=== PATIENT | female | born 1970 | race African-American/Black ===

== ENCOUNTER 2017-06-17 21:48 | Emergency (ER) | payer OTHER ==
[~2017-06-17] VITALS: Ht 162.6 cm; Wt 128.0 kg
[2017-06-17] MEDS ORDERED: ALBU1.25 NEB (22:06)
[2017-06-17] MEDS ORDERED: FLUTICASONE (22:06)
[2017-06-18] MEDS ORDERED: HYDROcodone/APAP 7.5-325MG/15ML UDC PO ONE
[2017-06-18] MEDS ORDERED: HYDROcodone/APAP 7.5-325MG/15ML UDC ONE (00:17)
[2017-06-18 00:56] VITALS: BP 140/80
== END 2017-06-18 01:00 | disposition home or self-care (01) ==
LOC: ED 23:10
DX: J39.8 Other specified diseases of upper respiratory tract (principal); I10 Essential (primary) hypertension
CPT/HCPCS: 36415; 71046; 86308; 87265; 99285

== ENCOUNTER 2017-06-27 17:26 | Emergency (ER) | payer OTHER ==
[~2017-06-27] VITALS: Ht 157.5 cm; Wt 127.9 kg
[~2017-06-27 17:26] MED LIST: ALBU1.25 NEB; FLUTICASONE
[2017-06-27 17:28] VITALS: BP 172/100
== END 2017-06-27 18:13 | disposition home or self-care (01) ==
LOC: ED 18:07
DX: B86 Scabies (principal); I10 Essential (primary) hypertension
CPT/HCPCS: 99283

== ENCOUNTER 2018-07-10 14:40 | Emergency (ER) | payer OTHER ==
[~2018-07-10] VITALS: Ht 160 cm; Wt 124.6 kg
[2018-07-10 14:47] VITALS: BP 162/102
[2018-07-10] MEDS ORDERED: KETOROLAC 30 MG/1 ML IM ONE (15:30)
[2018-07-10] MEDS ORDERED: L.E.T SOLUTION TP ONE (15:30)
[2018-07-10] MEDS ORDERED: DIAZEPAM 5 MG TABLET PO ONE (15:30)
[2018-07-10] MEDS ORDERED: DIAZEPAM 5 MG TABLET ONE (15:33)
[2018-07-10] MEDS ORDERED: KETOROLAC 30 MG/1 ML ONE (15:33)
--- NOTE | 2018-07-10 16:12 | NUR ---
Patient/Caregiver given discharge instructions and they have confirmed that they understand the instructions. Patient ambulatory with steady gait.
== END 2018-07-10 16:13 | disposition home or self-care (01) ==
LOC: ED 15:00
DX: M54.42 Lumbago with sciatica, left side (principal); I10 Essential (primary) hypertension
CPT/HCPCS: 96372; 99283; J1885